=== PATIENT | female | born 1995 | race Caucasian/White ===

== ENCOUNTER 2018-07-06 19:41 | Emergency (ER) | payer BC, OTHER ==
[2018-07-06] MEDS ORDERED: methylPREDNISolone Sodium Succinate 125 MG/2 ML SDV IM ONE (19:54)
--- NOTE | 2018-07-06 19:54 | EDM.PDOC ---
ED HPI GENERAL MEDICAL PROBLEM - General Stated Complaint: HAS HIVES AND TROUBLE BREATHING Time Seen by Provider: 07/06/18 19:50 Source of Information: Reports: Patient History Limitations: Reports: No Limitations - History of Present Illness INITIAL COMMENTS - FREE TEXT/NARRATIVE: HISTORY AND PHYSICAL: History of present illness: Patient is a 22-year-old female who presents to the emergency room with complaints of a rash, throat pain and dyspnea. She believes she is having an allergic reaction to an unknown since. She reports for the past 4 days she has noted a fine rash which "moves all over". She reports she has had some discomfort in her throat and for the past 30 minutes feels like she is having difficulty breathing. She has no new medications or exposures. She denies any fever, chills, chest pain, cough. Denies any abdominal pain, nausea, vomiting, diarrhea or constipation. Review of systems: As per history of present illness and below otherwise all systems reviewed and negative. Past medical history: As per history of present illness and as reviewed below otherwise noncontributory. Surgical history: As per history of present illness and as reviewed below otherwise noncontributory. Social history: No reported history of drug or alcohol abuse. Family history: As per history of present illness and as reviewed below otherwise noncontributory. Physical exam: General: Well-developed and well-nourished 22-year-old female. Alert and oriented. Nontoxic appearing, tearful, but in no acute distress. HEENT: Atraumatic, normocephalic, pupils equal and reactive bilaterally, negative for conjunctival pallor or scleral icterus, mucous membranes moist, throat clear, neck supple, nontender, trachea midline. No drooling or trismus noted. No meningeal signs Lungs: Clear to auscultation, breath sounds equal bilaterally, chest nontender. Heart: S1S2, regular rate and rhythm without overt murmur Abdomen: Soft, nondistended, nontender. Negative for masses or hepatosplenomegaly. Negative for costovertebral tenderness. Pelvis: Stable nontender. Genitourinary: Deferred. Rectal: Deferred. Skin: Faint nonspecific flat pinkish rash noted to bilateral inner wrists. A few small pinkish areas noted to bilateral shins. Otherwise skin is intact, warm , dry. No lesions noted. Extremities: Atraumatic, negative for cords or calf pain. Neurovascular unremarkable. Neuro: Awake, alert, oriented. Cranial nerves II through XII unremarkable. Cerebellum unremarkable. Motor and sensory unremarkable throughout. Exam nonfocal. Notes: Negative strep screening. Vital signs are stable. Supportive care measures were reviewed and discussed. She voices understanding and is agreeable to plan of care. Denies any further questions or concerns at this time. Diagnostics: Strep Screening Therapeutics: Solu-Medrol, Duo Neb Prescription: Medrol Dosepak Tylenol with Codiene (#4 oz) Impression: Sore Throat Nonspecific Rash Plan: 1. Please take Benadryl and Zantac routinely for the next 3-4 days. 2. Take the Medrol Dosepak as directed. Tylenol with codiene for pain. Will cause drowsiness, so do not take while driving or needing to be functioning outside the house. Otherwise OTC products for daytime use. 3. Follow up with your PCP in the next 1-2 days. Return to the ED as needed and as discussed. Definitive disposition and diagnosis as appropriate pending reevaluation and review of above. Duration: Day(s): throat Pain Score (Numeric/FACES): 5 - Related Data Allergies Allergy/AdvReac Type Severity Reaction Status Date / Time hydrocodone Allergy Other Verified 07/06/18 19:46 latex Allergy itchiness Verified 07/06/18 19:46 Home Meds: Home Meds . [No Known Home Meds] 07/06/18 [History] ED ROS GENERAL - Review of Systems Review Of Systems: ROS reveals no pertinent complaints other than HPI. ED EXAM, GENERAL - Physical Exam Exam: See Below (See dictation) Course - Vital Signs Last Recorded V/S: Last Vital Signs Temp 97.5 F 07/06/18 19:47 Pulse 103 H 07/06/18 19:47 Resp 18 07/06/18 19:47 BP 136/96 H 07/06/18 19:47 Pulse Ox 99 07/06/18 19:47 - Orders/Labs/Meds Orders: Active Orders 24 hr Category Date Time Status RT Aerosol Therapy [RC] ASDIRECTED Care 07/06/18 19:57 Active STREP SCRN A RAPID W CULT CONF [RM] Stat Lab 07/06/18 20:05 Received Meds: Medications Discontinued Medications Generic Name Dose Route Start Last Admin Trade Name Freq PRN Reason Stop Dose Admin Albuterol/Ipratropium 3 ml 07/06/18 19:57 07/06/18 20:09 Duoneb 3.0-0.5 Mg/3 Ml NEB 07/06/18 19:58 3 ml ONETIME ONE Administration Methylprednisolone Sodium Succinate 125 mg 07/06/18 19:54 07/06/18 20:01 Solu-Medrol IM 07/06/18 19:55 125 mg ONETIME ONE Administration Departure - Departure Time of Disposition: 20:25 Disposition: Home, Self-Care 01 Clinical Impression: Rash and nonspecific skin eruption, Sore throat - Discharge Information Instructions: Allergies, Adult, [id number] Referrals: PCP,None [Primary Care Provider] - Additional Instructions: The following information is given to patients seen in the emergency department who are being discharged to home. This information is to outline your options for follow-up care. We provide all patients seen in our emergency department with a follow-up referral. The need for follow-up, as well as the timing and circumstances, are variable depending upon the specifics of your emergency department visit. If you don't have a primary care physician on staff, we will provide you with a referral. We always advise you to contact your personal physician following an emergency department visit to inform them of the circumstance of the visit and for follow-up with them and/or the need for any referrals to a consulting specialist. The emergency department will also refer you to a specialist when appropriate. This referral assures that you have the opportunity for follow-up care with a specialist. All of these measure are taken in an effort to provide you with optimal care, which includes your follow-up. Under all circumstances we always encourage you to contact your private physician who remains a resource for coordinating your care. When calling for follow-up care, please make the office aware that this follow-up is from your recent emergency room visit. If for any reason you are refused follow-up, please contact the [facility] at and asked to speak to the emergency department charge nurse. [facility] [address] [place] [id number] 1. Please take Benadryl and Zantac routinely for the next 3-4 days. 2. Take the Medrol Dosepak as directed. Tylenol with codeine for pain. Will cause drowsiness, so do not take while driving or needing to be functioning outside the house. Otherwise OTC products for daytime use. 3. Follow up with your PCP in the next 1-2 days. Return to the ED as needed and as discussed. - My Orders Last 24 Hours: My Active Orders 07/06/18 19:57 RT Aerosol Therapy [RC] ASDIRECTED 07/06/18 20:05 STREP SCRN A RAPID W CULT CONF [RM] Stat - Assessment/Plan Last 24 Hours: My Active Orders 07/06/18 19:57 RT Aerosol Therapy [RC] ASDIRECTED 07/06/18 20:05 STREP SCRN A RAPID W CULT CONF [RM] Stat
[2018-07-06] MEDS ORDERED: Albuterol/Ipratropium 3.0-0.5 MG/3 ML Neb Soln NEB ONE (19:57)
[2018-07-06 20:39] VITALS: BP 133/77
== END 2018-07-06 20:34 | disposition home or self-care (01) ==
LOC: MW.ED 19:41
DX: R21 Rash and other nonspecific skin eruption (principal); J02.9 Acute pharyngitis, unspecified; Z91.040 Latex allergy status; Z88.8 Allergy status to other drugs, medicaments and biological substances
CPT/HCPCS: 87081; 87880; 94640; 96372; 99283; J2930; J7620-GY